=== PATIENT | male | born 1980 | race Caucasian/White ===

== ENCOUNTER 2017-11-17 19:35 | Emergency (ER) | payer MEDICAID ==
[~2017-11-17] VITALS: Ht 160 cm; Wt 59.4 kg
[2017-11-17 19:44] VITALS: BP 155/99
--- NOTE | 2017-11-17 19:47 | NUR ---
PT RETURNED TO LOBBY
--- NOTE | 2017-11-17 20:15 | NUR ---
MADE AWARE PT IN LOBBY
--- NOTE | 2017-11-17 21:05 | NUR ---
PATIENT AMBULATED TO ER OF3.
--- NOTE | 2017-11-17 21:07 | NUR ---
PATIENT IS A 37 Y/O MALE WHO PRESENTS TO THE ED C/O LAC/SUTURE REMOVAL. PT STATES, "I CUT MY FOOT A FEW DAYS AGO AND I NEED THEM TAKEN OUT." PT DENIES PAIN. PT DENIES CP, SOB, N/V/D. PT AAOX4, RR EVEN/UNLABORED. PT REPOSITIONED FOR COMFORT, CHUCKY CONTRERAS NOTIFIED. WILL CONTINUE TO MONITOR. Addendum: 11/17/17 at 2118 by [email or web address] PATIENT IS A 37 Y/O MALE WHO PRESENTS TO THE ED C/O LAC/SUTURE REMOVAL. PT STATES, "I CUT MY FOOT A FEW DAYS AGO AND I NEED THEM TAKEN OUT." PT DENIES PAIN. PT DENIES CP, SOB, N/V/D. PT AAOX4, RR EVEN/UNLABORED. CMS INTACT, FULL ROM NOTED ON LEFT FOOT. PT REPOSITIONED FOR COMFORT, CHUCKY CONTRERAS NOTIFIED. WILL CONTINUE TO MONITOR.
[2017-11-17] MEDS ORDERED: cefTRIAXone 1,000 MG in LIDOCAINE 1% ***ER ONLY *** 2.1 ML IM ONE (21:35)
[2017-11-17] MEDS ORDERED: NEOMYCIN/POLYMYXIN/BACITRACIN 0.9 GM/1 PKT TP ONE (21:35)
[2017-11-17 22:41] VITALS: BP 141/85
--- NOTE | 2017-11-17 22:41 | NUR ---
Patient discharged with v/s stable. Written and verbal after care instructions given and explained. Patient alert, oriented and verbalized understanding of instructions. Ambulatory with steady gait. All questions addressed prior to discharge. ID band removed. Patient advised to follow up with PMD. Rx of KEFLEX, IBUPROFEN AND BACITRACIN given. Patient educated on indication of medication including possible reaction and side effects. Opportunity to ask questions provided and answered.
== END 2017-11-17 22:41 | disposition home or self-care (01) ==
LOC: MED 19:35
DX: S91.312D Laceration without foreign body, left foot, subsequent encounter (principal); X58.XXXD Exposure to other specified factors, subsequent encounter; F17.210 Nicotine dependence, cigarettes, uncomplicated; F12.10 Cannabis abuse, uncomplicated
CPT/HCPCS: 96372; 99283; J0696; J2001